=== PATIENT | male | born 1945 | race Caucasian/White ===

== ENCOUNTER 2020-03-11 11:20 | Emergency (ER) | payer SELFPAY ==
[2020-03-11] MEDS ORDERED: ISOVUE-370 76% 100ML VIAL As Ordered ONE (13:53)
[2020-03-11] MEDS ORDERED: AUGMENTIN 875 MG TAB As Ordered ONE (14:44)
[2020-04-06 15:17] LABS: BASO % 0.6 % (0.0-1.0); EOS # 0.2 10^3/uL (0.0-0.5); HEMOGLOBIN 12.9 g/dl (13.5-17.5); LYMPH # 1.5 10^3/uL (1.5-5.0); LYMPH % 30.3 % (24.0-44.0); MEAN CORPUSCULAR HEMOGLOBIN 31.9 pg (27.0-33.0); MEAN CORPUSCULAR HGB CONC 33.1 g/dl (32.0-36.5); MEAN CORPUSCULAR VOLUME 96.3 fl (80.0-96.0); MONO # 0.4 10^3/uL (0.0-0.8); MONO % 6.9 % (0.0-5.0); PLATELET COUNT, AUTOMATED 195 10^3/uL (150-450); RED BLOOD COUNT 4.05 10^6/uL (4.30-6.10); WHITE BLOOD COUNT 5.1 10^3/uL (4.0-10.0)
[2020-04-17 10:26] LABS: BLOOD UREA NITROGEN 17 MG/DL (7-18); CHLORIDE LEVEL 110 MEQ/L (98-107); CREATININE FOR GFR 1.18 MG/DL (0.70-1.30); GLOMERULAR FILTRATION RATE > 60.0 (>42); GLUCOSE, FASTING 104 MG/DL (70-100); POTASSIUM SERUM 4.2 MEQ/L (3.5-5.1); SODIUM LEVEL 147 MEQ/L (136-145)
[2020-04-17 10:27] LABS: ALBUMIN 3.5 GM/DL (3.2-5.2); ALT/SGPT 36 IU/L (0-32); BILIRUBIN,DIRECT 0.2 MG/DL (0.0-0.2); BILIRUBIN,TOTAL 0.6 MG/DL (0.2-1.0); CALCIUM LEVEL 8.5 MG/DL (8.8-10.2); CARBON DIOXIDE LEVEL 31 mmol/L (20-29)
--- NOTE | 2020-05-03 14:24 | REP ---
CT OF THE ABDOMEN AND PELVIS WITH CONTRAST: HISTORY: Acute abdominal pain. TECHNIQUE: Axial contrast-enhanced images from the lung bases to the pubic symphysis with coronal and sagittal reformations using 100 cc Isovue 370 intravenous contrast material. FINDINGS: The lung bases are clear. The visualized heart and pericardium are normal. The liver, spleen, pancreas, bilateral adrenal glands and kidneys are normal. Cholelithiasis noted without acute cholecystitis. 2.5 cm fat-containing periumbilical hernia identified. The enteric system is without obstruction or acute inflammatory process. Normal cecum, terminal ileum and appendix are identified in the right lower quadrant. Sigmoid diverticulosis noted without acute diverticulitis. The pelvis demonstrates normal bladder and mildly prominent prostate gland. No pelvic fluid or ascites. No free air. No adenopathy. The abdominal aorta is without aneurysm or dissection. Musculoskeletal structures demonstrate age related changes without acute osseous abnormality. IMPRESSION: 1. No obvious acute abdominopelvic pathology appreciated. 2. Cholelithiasis without acute cholecystitis. 3. Diverticulosis without acute diverticulitis. MTDD
== END 2020-03-11 15:03 | disposition home or self-care (01) ==
LOC: M ED 11:20
DX: K57.32 Diverticulitis of large intestine without perforation or abscess without bleeding (principal); K80.20 Calculus of gallbladder without cholecystitis without obstruction; Z79.82 Long term (current) use of aspirin
CPT/HCPCS: 74177; 80048; 80076; 83605; 85025; 99283; Q9967

== ENCOUNTER 2024-03-07 11:16 | Emergency (ER) | payer SELFPAY ==
[~2024-03-07] VITALS: Ht 172.7 cm; Wt 85.2 kg
[2024-03-07 11:16] VITALS: BP 135/78; TEMP 97.7; O2SAT 98
== END 2024-03-07 14:29 | disposition left against medical advice (07) ==
LOC: M ED 11:16
DX: Z53.21 Procedure and treatment not carried out due to patient leaving prior to being seen by health care provider (principal)

== ENCOUNTER 2024-03-17 14:33 | Emergency (ER) | payer MEDICARE, SELFPAY ==
[~2024-03-17] VITALS: Ht 170.2 cm; Wt 85.3 kg
[2024-03-17 14:33] VITALS: TEMP 97.9
[2024-03-17 15:31] LABS: BASO % 0.2 % (0.0-1.0); EOS # 0.1 10^3/uL (0.0-0.5); EOS % 1.3 % (0.0-3.0); HEMATOCRIT 39.4 % (42.0-52.0); HEMOGLOBIN 13.3 g/dl (13.5-17.5); LYMPH # 3.3 10^3/uL (1.5-5.0); LYMPH % 30.5 % (24.0-44.0); MEAN CORPUSCULAR HEMOGLOBIN 32.2 pg (27.0-33.0); MEAN CORPUSCULAR HGB CONC 33.8 g/dl (32.0-36.5); MEAN CORPUSCULAR VOLUME 95.4 fl (80.0-96.0); MONO # 0.9 10^3/uL (0.0-0.8); MONO % 8.3 % (2.0-8.0); NEUTROPHILS # 6.5 10^3/uL (1.5-8.5); NEUTROPHILS % 59.2 % (36.0-66.0); PLATELET COUNT, AUTOMATED 176 10^3/uL (150-450); RED BLOOD COUNT 4.13 10^6/uL (4.30-6.10); WHITE BLOOD COUNT 10.9 10^3/uL (4.0-10.0)
[2024-03-17 15:55] LABS: ALBUMIN 3.8 G/DL (3.2-5.2); ALKALINE PHOSPHATASE 82 U/L (46-116); ALT/SGPT 16 U/L (7.0-40); AST/SGOT 16 U/L (<34); BILIRUBIN,TOTAL 0.8 MG/DL (0.3-1.2); BLOOD UREA NITROGEN 16 MG/DL (9-23); CALCIUM LEVEL 8.9 MG/DL (8.3-10.6); CARBON DIOXIDE LEVEL 30 MMOL/L (20-31); CHLORIDE LEVEL 108 MMOL/L (98-107); CREATININE FOR GFR 1.18 MG/DL (0.70-1.30); GLOMERULAR FILTRATION RATE > 60.0 (>42); GLUCOSE, FASTING 88 MG/DL (74-106); POTASSIUM SERUM 4.3 MMOL/L (3.5-5.1); SODIUM LEVEL 143 MMOL/L (136-145); TOTAL PROTEIN 6.4 G/DL (5.7-8.2)
[2024-03-17] MEDS ORDERED: ISOVUE-370 76% 100ML VIAL As Ordered ONE (16:36)
[2024-03-17 16:49] LABS: CK-MB VALUE MASS 1.4 NG/ML (<3.6)
[2024-03-17 16:50] LABS: CPK CREATINE PHOSPHOKINASE 86 U/L (46-171); MB/CK RELATIVE INDEX 1.62 (< OR =4)
[2024-03-17] MEDS: NS 500 ML IV ONE (17:09)
[2024-03-17 17:22] LABS: INR 1.02; PARTIAL THROMBOPLASTIN TIME 28.8 SECONDS (24.8-34.2); PROTHROMBIN TIME 13.1 SECONDS (12.5-14.5)
[2024-03-17 17:39] LABS: CK-MB VALUE MASS 1.3 NG/ML (<3.6)
[2024-03-17 17:40] LABS: MB/CK RELATIVE INDEX 1.73 (< OR =4)
[2024-03-17 22:45] VITALS: BP 135/67
[2024-03-17 22:46] VITALS: O2SAT 98
== END 2024-03-17 23:17 | disposition left against medical advice (07) ==
LOC: M ED 14:43
DX: R42 Dizziness and giddiness (principal); R00.1 Bradycardia, unspecified; I45.81 Long QT syndrome; Z53.9 Procedure and treatment not carried out, unspecified reason
CPT/HCPCS: 36415; 70450; 70496; 70498; 70551; 71045; 80047; 80053; 82550; 82553; 84484; 85025; 85610; 85730; 93005; 93041; 94760; 99285; Q9967

== ENCOUNTER 2025-01-04 23:35 | Emergency (ER) | payer MEDICARE, SELFPAY ==
[~2025-01-04] VITALS: Ht 172.7 cm; Wt 87.0 kg
[2025-01-05 01:08] LABS: BASO % 0.4 % (0.0-1.0); EOS # 0.1 10^3/uL (0.0-0.5); EOS % 1.4 % (0.0-3.0); HEMATOCRIT 39.1 % (42.0-52.0); LYMPH # 2.4 10^3/uL (1.5-5.0); LYMPH % 28.7 % (24.0-44.0); MEAN CORPUSCULAR HEMOGLOBIN 31.6 pg (27.0-33.0); MEAN CORPUSCULAR HGB CONC 33.2 g/dl (32.0-36.5); MEAN CORPUSCULAR VOLUME 94.9 fl (80.0-96.0); MONO # 0.5 10^3/uL (0.0-0.8); MONO % 6.3 % (2.0-8.0); NEUTROPHILS # 5.4 10^3/uL (1.5-8.5); PLATELET COUNT, AUTOMATED 176 10^3/uL (150-450); RED BLOOD COUNT 4.12 10^6/uL (4.30-6.10); WHITE BLOOD COUNT 8.5 10^3/uL (4.0-10.0)
[2025-01-05] MEDS: ACETAMINOPHEN *IV* 1,000 MG in IV 1 EA IV ONE (01:17)
[2025-01-05 01:30] LABS: CK-MB VALUE MASS 3.1 NG/ML (<3.6)
[2025-01-05 01:32] LABS: ALBUMIN 3.9 G/DL (3.2-5.2); BILIRUBIN,DIRECT 0.2 MG/DL (<0.4); BILIRUBIN,TOTAL 0.6 MG/DL (0.3-1.2); CALCIUM LEVEL 8.5 MG/DL (8.3-10.6); CREATININE FOR GFR 1.49 MG/DL (0.70-1.30); GLOMERULAR FILTRATION RATE 47.7 (>42); POTASSIUM SERUM 3.9 MMOL/L (3.5-5.1); TOTAL PROTEIN 6.5 G/DL (5.7-8.2)
[2025-01-05 01:33] LABS: MB/CK RELATIVE INDEX 1.12 (< OR =4)
[2025-01-05] MEDS ORDERED: ISOVUE-370 76% 100ML VIAL As Ordered ONE (01:56)
[2025-01-05] MEDS: KETOROLAC 30 MG/ML 1ML VIAL IV ONE (04:08)
[2025-01-05] MEDS: TAMSULOSIN 0.4 MG CAP PO ONE (06:10)
[2025-01-05] MEDS ORDERED: TAMS-18 PO (06:43)
[2025-01-05] MEDS ORDERED: PERC5TAB12 PO (06:43)
[2025-01-05 06:44] LABS: KETONE, URINE AUTO RFX NEGATIVE (NEGATIVE); LEUKOCYTE ESTERASE UR AUTO RFX NEGATIVE (NEGATIVE); MUCUS, URINE RFX SMALL (NEGATIVE); NITRITE, URINE AUTO RFX NEGATIVE (NEGATIVE); RBC, URINE AUTO RFX TNTC /HPF (0-3); SQUAM EPITHELIAL CELL UR AURFX 0 /HPF (0-6); WBC, URINE AUTO RFX 0 /HPF (0-3)
[2025-01-05 07:00] VITALS: BP 147/71; TEMP 97.6; O2SAT 90
== END 2025-01-05 07:07 | disposition home or self-care (01) ==
LOC: M ED 23:35
DX: N20.1 Calculus of ureter (principal); I71.40 Abdominal aortic aneurysm, without rupture, unspecified; J98.11 Atelectasis; K42.9 Umbilical hernia without obstruction or gangrene; R00.1 Bradycardia, unspecified; I45.10 Unspecified right bundle-branch block; Z79.899 Other long term (current) drug therapy
CPT/HCPCS: 74177; 80048; 80076; 81001; 82550; 82553; 83605; 83690; 84484; 85025; 87040; 93005; 93041; 96374; 96375; 99285; J0131; J1885; Q9967

== ENCOUNTER 2025-03-31 03:05 | Emergency (ER) | payer SELFPAY ==
[~2025-03-31] VITALS: Ht 172.7 cm; Wt 86.1 kg
[~2025-03-31 03:05] MED LIST: PERC5TAB12 PO; TAMS-18 PO
[2025-03-31 03:52] LABS: BASO # 0.0 10^3/uL (0.0-0.2); BASO % 0.2 % (0.0-1.0); EOS # 0.2 10^3/uL (0.0-0.5); EOS % 1.6 % (0.0-3.0); LYMPH # 3.8 10^3/uL (1.5-5.0); LYMPH % 39.4 % (24.0-44.0); MONO # 0.7 10^3/uL (0.0-0.8); MONO % 6.8 % (2.0-8.0); NEUTROPHILS # 5.1 10^3/uL (1.5-8.5); NEUTROPHILS % 51.9 % (36.0-66.0); PLATELET COUNT, AUTOMATED 179 10^3/uL (150-450)
[2025-03-31 04:00] VITALS: BP 139/78; TEMP 98.3; O2SAT 94
[2025-03-31 04:02] LABS: C REACTIVE PROTEIN QUANTITATIV < 0.50 MG/DL (<1.0); CALCIUM LEVEL 8.7 MG/DL (8.3-10.6); CARBON DIOXIDE LEVEL 30 MMOL/L (20-31); CHLORIDE LEVEL 112 MMOL/L (98-107); CREATININE FOR GFR 1.32 MG/DL (0.70-1.30); GLOMERULAR FILTRATION RATE 55.2 (>42); POTASSIUM SERUM 4.6 MMOL/L (3.5-5.1); SODIUM LEVEL 151 MMOL/L (136-145)
== END 2025-03-31 05:27 | disposition left against medical advice (07) ==
LOC: M ED 03:05
DX: R22.0 Localized swelling, mass and lump, head (principal); Z79.899 Other long term (current) drug therapy
CPT/HCPCS: 80048; 85025; 86140; 96374; 99284; J2919